=== PATIENT | female | born 2000 | race Native Hawaiian/Other Pacific Islander ===

== ENCOUNTER 2021-07-23 18:29 | Emergency (ER) | payer OTHER ==
[2021-07-23 18:42] VITALS: BP 137/80
[2021-07-23] MEDS ORDERED: IBUPROFEN 800 MG TABLET PO STA (19:14)
--- NOTE | 2021-07-23 19:26 | ED Physician Documentation ---
PD HPI UPPER EXT INJURY - Stated complaint Stated Complaint: RT FINGER VS MANDOLIN - Chief complaint Chief Complaint: Laceration - History obtained from History obtained from: Patient - History of Present Illness Location: Right, Finger Type of injury: Laceration Pain level max: 7 Pain level now: 5 Improved by: Rest Worsened by: Moving, Palpating Associated symptoms: No: Weakness, Numbness, Tingling, Swelling Contributing factors: No: Anticoagulated - Additonal information Additional information: 20-year-old female with a right middle finger laceration. She was using a mandolin at home to slice willa when she accidentally sliced the tip of her finger. Patient is right-handed. Review of Systems Constitutional: denies: Fever : denies: Now [facility] PAST MEDICAL HISTORY - Past Medical History Past Medical History: No - Past Surgical History Past Surgical History: No - Present Medications Home Medications: Ambulatory Orders Medication Instructions Recorded Confirmed No Known Home Medications 07/23/21 07/23/21 - Allergies Allergies/Adverse Reactions: Allergies Allergy/AdvReac Type Severity Reaction Status Date / Time nickel Allergy Rash Verified 07/23/21 18:40 - Living Situation Living Situation: reports: With family Living Arrangement: reports: At home - Social History Does the pt have substance abuse?: No - Immunizations Immunizations are current?: Yes Immunizations: TDAP current <10years PD ED PE NORMAL - Vitals Vital signs reviewed: Yes - General General: Alert and oriented X 3, No acute distress - Derm Derm: Warm and dry - Extremities Extremities: Other (Right middle finger, 0.3 cm round avulsion off the medial aspect distal pad. Neurovascularly intact.) - Neuro Neuro: Alert and oriented X 3 - Psych Psych: Normal mood, Normal affect Results - Vitals Vitals: Vital Signs - 24 hr 07/23/21 18:40 Temperature 36.7 C Heart Rate 95 Respiratory 19 Rate Blood Pressure 137/80 H O2 Saturation 100 Oxygen O2 Source Room air PD MEDICAL DECISION MAKING - ED course Complexity details: considered differential, d/w patient, d/w family ED course: Patient with a small skin avulsion off the right middle finger, distal tip. No bony exposure. A tourniquet was applied and Dermabond was used to cover the wound. A dressing was then applied and the tourniquet was removed. No further bleeding. Tetanus up-to-date. Warnings of infection and instructions on wound care given at bedside. Also counseled on how to minimize scarring. Patient counseled regarding signs and symptoms for which I believe and urgent re- evaluation would be necessary. Patient with good understanding of and agreement to plan and is comfortable going home at this time This document was made in part using voice recognition software. While efforts are made to proofread this document, sound alike and grammatical errors may occur. Departure - Departure Disposition: 01 Home, Self Care Clinical Impression: Finger laceration Qualifiers: Encounter type: initial encounter Finger: middle finger Damage to nail status: without damage Foreign body presence: without foreign body Laterality: right Qualified Code(s): S61.212A - Laceration without foreign body of right middle finger without damage to nail, initial encounter Condition: Good Instructions: ED Laceration Amputation Finger Tip Open Tx Follow-Up: JUN BURROUGHS MD [Primary Care Provider] - As Needed Comments: Keep the wound clean. The glue will dissolve on its own. You can use Motrin or Tylenol as needed for pain. Elevate the affected area whenever possible tonight. Return if you notice redness, swelling or drainage from the wound. You can change the dressing later tonight or tomorrow. Discharge Date/Time: 07/23/21 19:31
== END 2021-07-23 19:31 | disposition home or self-care (01) ==
LOC: ED 18:29
DX: S61.212A Laceration without foreign body of right middle finger without damage to nail, initial encounter (principal); W27.4XXA Contact with kitchen utensil, initial encounter; Y93.G1 Activity, food preparation and clean up
CPT/HCPCS: 99282; A9270